=== PATIENT | male | born 1950 | race Caucasian/White ===

== ENCOUNTER 2019-12-16 12:38 | Emergency (ER) | payer MEDICARE ==
--- NOTE | 2019-12-16 13:59 | EDM.PDOC ---
<Mayela Vidal M - Last Filed: 12/16/19 15:15> ED HPI GENERAL MEDICAL PROBLEM - General Chief Complaint: ENT Problem Stated Complaint: VERTIGO Time Seen by Provider: 12/16/19 13:35 Source of Information: Reports: Patient, Old Records, RN, RN Notes Reviewed History Limitations: Reports: No Limitations - History of Present Illness INITIAL COMMENTS - FREE TEXT/NARRATIVE: 69 year old male here via private vehicle with continuing c/o ear drainage from left ear. Pt had utilized [employer] or tele medicine platforms on 2 occasions prior to todays ER visit. . Pt has extensive ENT history with chronic ear infections and placement of ET. Was prescribed Z-pack and Floxinooitic drops. Denies pain to BL ears 0/10. C/o increasing vertigo and drainage. Allergy to Amoxicillin. Onset: Today, Gradual Onset Date: 12/14/19 Duration: Day(s):, Getting Worse, Other (Re-current ear infections. BL ET. 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: Reports: Other (see below) (Previously prescribed Z-pack and Cipro ear gtts) - Related Data Allergies Allergy/AdvReac Type Severity Reaction Status Date / Time amoxicillin [From Augmentin] Allergy Hives Verified 12/16/19 13:05 clavulanic acid Allergy Hives Verified 12/16/19 13:05 [From Augmentin] Home Meds: Home Meds Azithromycin [Zithromax] 500 mg PO DAILY 12/16/19 [History] Chlorthalidone 25 mg PO DAILY 12/16/19 [History] Flaxseed/Omega3,6,9/Fatty Acid [Flax Seed Oil 1,300 mg Softgel] 1 each PO DAILY 12/16/19 [History] Metoprolol Succinate 100 mg PO DAILY 12/16/19 [History] Ofloxacin [Floxin 0.3% Otic Soln] 10 drop EARLF DAILY 12/16/19 [History] Turmeric Root Extract [Turmeric Curcumin] 500 mg PO DAILY 12/16/19 [History] Ubidecarenone [Coenzyme Q10] 400 mg PO DAILY 12/16/19 [History] atorvaSTATin [Lipitor] 40 mg PO BEDTIME 12/16/19 [History] Past Medical History HEENT History: Reports: Otitis Media, Other (See Below) Other HEENT History: chronic eustachian tube dysfunction bilateral Cardiovascular History: Reports: High Cholesterol, Hypertension Respiratory History: Reports: None, Sleep Apnea Gastrointestinal History: Reports: GERD Genitourinary History: Reports: Other (See Below) Other Genitourinary History: ED Musculoskeletal History: Reports: Back Pain, Chronic, Fracture, Other (See Below) Other Musculoskeletal History: HIP PAIN. carpal tunnel Endocrine/Metabolic History: Reports: Obesity/BMI 30+ Hematologic History: Reports: Iron Deficiency - Past Surgical History HEENT Surgical History: Reports: Adenoidectomy, Myringotomy w Tube(s), Tonsillectomy GI Surgical History: Reports: Colonoscopy Musculoskeletal Surgical History: Reports: Arthroscopic Procedure, Shoulder Surgery Social & Family History - Tobacco Use Tobacco Use Comment: current some day smoke - Caffeine Use Caffeine Use: Reports: Coffee - Recreational Drug Use Recreational Drug Type: Reports: Marijuana/Hashish ED ROS ENT - Review of Systems Review Of Systems: See Below Constitutional: Reports: No Symptoms HEENT: Reports: Ear Discharge (L ear. ET not visualized. R ET visualized and intact. ), Vertigo (L ear. Unable to visulaize ET in L ear but vclearly visible in R ear) Respiratory: Reports: No Symptoms Cardiovascular: Reports: No Symptoms Endocrine: Reports: No Symptoms GI/Abdominal: Reports: No Symptoms : Reports: No Symptoms Musculoskeletal: Reports: No Symptoms Skin: Reports: No Symptoms Neurological: Reports: Other (Vertigo onset from L ear infection) Psychiatric: Reports: No Symptoms Hematologic/Lymphatic: Reports: No Symptoms Immunologic: Reports: No Symptoms ED EXAM, ENT - Physical Exam Exam: See Below Exam Limited By: No Limitations General Appearance: Alert, WD/WN, No Apparent Distress Eye Exam: Bilateral Eye: Normal Inspection, PERRL Ears: Normal External Exam, Hearing Grossly Normal, Canal Discharge (L ear discharge yellowish puss), Canal Foreign Body, TM Fluid (L ear with puss and exudate) Nose: Normal Inspection, Normal Mucousa, No Blood Mouth/Throat: Normal Inspection Head: Normocephalic Neck: Normal Inspection, Supple, Non-Tender, Full Range of Motion Respiratory/Chest: No Respiratory Distress, Lungs Clear, Normal Breath Sounds, No Accessory Muscle Use, Chest Non-Tender Cardiovascular: Normal Peripheral Pulses, Regular Rate, Rhythm, No Edema, No Gallop, No JVD, No Murmur, No Rub GI/Abdominal: Normal Bowel Sounds, Soft, Non-Tender, No Distention (Male) Exam: Deferred Rectal (Males) Exam: Deferred Back: Normal Inspection, Full Range of Motion Extremities: Normal Inspection, Normal Range of Motion, Non-Tender, No Pedal Edema, Normal Capillary Refill Neurological: Alert, Oriented, CN II-XII Intact, Other (Vertigo) Psychiatric: Normal Affect, Normal Mood Skin: Warm, Dry, Intact, Normal Color Lymphatic: No Adenopathy Course - Re-Assessments/Exams Free Text/Narrative Re-Assessment/Exam: 12/16/19 14:01 Pt exam. See flow sheet for ROS No distress. ROS negative with exception of L ear 12/16/19 15:10 Meclizine given. Will asses at 1515. 12/16/19 15:15 Meclizine helped "some". Pt and spouse agree to take RX and fill. Departure - Departure Disposition: Home, Self-Care 01 Condition: Good Clinical Impression: Otitis media Qualifiers: Otitis media type: mucoid Chronicity: chronic Laterality: left Qualified Code(s): H65.32 - Chronic mucoid otitis media, left ear - Discharge Information *PRESCRIPTION DRUG MONITORING PROGRAM REVIEWED*: Not Applicable *COPY OF PRESCRIPTION DRUG MONITORING REPORT IN PATIENT GENESIS: Not Applicable Instructions: Ear Drops, Adult, [id number], Otitis Media, Adult, [id number] Referrals: PCP,None [Primary Care Provider] - Forms: ED Department Discharge Care Plan Goals: Please continue with Azithromycin that was previously prescribed. Please refer to educational material that is provided on proper administration of ear drops Follow directions for all medications that are prescribed for today's visit. Use caution with driving and activities with the onset of the dizziness Rest. Drink plenty of fluids. Seel immediate medical attention in the event of an emergency. Please follow up as needed with your helper shear operator or regular physician. Sepsis Event Note (ED) - Evaluation Sepsis Screening Result: No Definite Risk <OfficerJames - Last Filed: 12/16/19 15:22> ED EXAM, ENT - Physical Exam Text/Narrative:: Agree with exam below Course - Vital Signs Last Recorded V/S: Last Vital Signs Temp 98 F 12/16/19 13:04 Pulse 71 12/16/19 13:04 Resp 16 12/16/19 13:04 BP 131/85 12/16/19 13:04 Pulse Ox 96 12/16/19 13:04 - Orders/Labs/Meds Meds: Medications Discontinued Medications Generic Name Dose Route Start Last Admin Trade Name Freq PRN Reason Stop Dose Admin Meclizine HCl 25 mg 12/16/19 14:16 12/16/19 14:56 Antivert PO 12/16/19 14:17 25 mg ONETIME ONE Administration Departure - Departure Time of Disposition: 15:22 Sepsis Event Note (ED) - Focused Exam Vital Signs: Vital Signs Temp Pulse Resp BP Pulse Ox 12/16/19 13:04 98 F 71 16 131/85 96 12/16/19 12:56 98 F 71 16 131/85 96 - Assessment/Plan Plan: Assessment Acuity = acute Site and laterality = left otitis media Etiology = probable bacterial cause Manifestations = vertigo Location of injury = Home Lab values = none Plan He is currently on antibiotics of azithromycin which he has had good success for in the past he has had dizziness with these ear infections, tried meclizine in the emergency department felt to give him some relief prescription written for 25 mg 1 tab p.o. 3 times daily PRN total #100 follow-up with primary care or his ENT in the next 5 to 7 days if not better James Almonte MD was personally available for consultation in the ED. I have reviewed the chart and agree with the documentation as recorded by the DIRECTOR OF CORPORATE REAL ESTATE Student, including the assessment, treatment plan and disposition. James Almonte MD personally saw and examined the patient. I have reviewed and agree with the DIRECTOR OF CORPORATE REAL ESTATE Student's findings. This note was dictated using [employer] voice recognition software please call with any questions on syntax or grammar.
[2019-12-16] MEDS ORDERED: Meclizine 25 MG Tab PO ONE (14:16)
== END 2019-12-16 15:44 | disposition home or self-care (01) ==
LOC: JP.ED 12:38
DX: H65.32 Chronic mucoid otitis media, left ear (principal); E78.00 Pure hypercholesterolemia, unspecified; I10 Essential (primary) hypertension; E66.9 Obesity, unspecified; Z68.34 Body mass index [BMI] 34.0-34.9, adult; Z88.1 Allergy status to other antibiotic agents; Z79.899 Other long term (current) drug therapy
CPT/HCPCS: 99282; A9270